=== PATIENT | male | born 2000 | race Caucasian/White ===

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

== ENCOUNTER → 2018-11-07 | Outpatient (CLI) | payer OTHER | LOC: BMCIMAGING 14:09 | PROVIDERS: ATTEND Family Medicine | DX: S69.91XA Unspecified injury of right wrist, hand and finger(s), initial encounter (principal) ==

== ENCOUNTER 2018-11-30 23:23 | Emergency (ER) | payer OTHER ==
[2018-11-30] MEDS ORDERED: ONDANSETRON 4 MG/2 ML VIAL IVP ONE (23:38)
[2018-11-30] MEDS ORDERED: NS 1,000 ML IV ONE ×2 (23:38→23:39)
--- NOTE | 2018-11-30 23:39 | EDPHY ---
H & P Stated Complaint: abd pain, vomiting since 5pm, felt unwell for a few hours Time Seen by Provider: 11/30/18 23:32 HPI/ROS: Chief Complaint: Nausea vomiting HPI: 18-year-old male began having nausea vomiting about 5:00 a.m. This evening. Had multiple episodes of vomiting. No blood or coffee-grounds in his emesis. No abdominal pain. He has not been able to keep any fluids down. No diarrhea or constipation. No dark tarry stools. He has a history of an appendectomy in the past. No fevers or chills. No known ill exposures however he is a student at the [employer]. ROS: 10 systems were reviewed and were negative except those elements noted in the HPI. PMH: Denies, has had an appendectomy Social History: No smoking, occasional alcohol, occasional marijuana Family History: non-contributory Physical Exam: Gen: Awake, Alert, No Distress HEENT: Nose: no rhinorrhea Eyes: PERRLA, EOMI Mouth: Moist mucosa Neck: Supple, no JVD Chest: nontender, lungs clear to auscultation Heart: S1, S2 normal, no murmur Abd: Soft, non-tender, no guarding Back: no CVA tenderness, no midline tenderness Ext: no edema, non-tender Skin: no rash Neuro: CN II-XII intact, Sensation grossly intact, Strength 5/5 in bilateral upper and lower extremities - Personal History Current Tetanus/Diphtheria Vaccine: Yes Current Tetanus Diphtheria and Acellular Pertussis (TDAP): Yes - Medical/Surgical History Hx Asthma: No Hx Chronic Respiratory Disease: No Hx Diabetes: No Hx Cardiac Disease: No Hx Renal Disease: No Hx Cirrhosis: No Hx Alcoholism: No Hx HIV/AIDS: No Hx Splenectomy or Spleen Trauma: No Other PMH: appendicitis - Social History Smoking Status: Never smoked Constitutional: Initial Vital Signs Temperature (C) 37.3 C 11/30/18 23:26 Heart Rate 84 11/30/18 23:26 Respiratory Rate 20 11/30/18 23:26 Blood Pressure 100/73 11/30/18 23:26 O2 Sat (%) 97 11/30/18 23:26 O2 Delivery Mode Room Air Allergies/Adverse Reactions: No Known Allergies Allergy (Unverified 11/30/18 23:26) Home Medications: Medication Instructions Recorded NK [No Known Home Meds] 11/30/18 Medical Decision Making ED Course/Re-evaluation: Patient presenting with acute nausea vomiting. Blood work is unremarkable. He has not had any abdominal pain. No diarrhea or constipation. Abdomen is soft and benign. He has been given Zofran and fluids here. Is feeling improved. No vomiting since he has been in the emergency department. He is tolerating p. O.. Will discharge with follow-up with primary care physician. Will send him home with Zofran. - Data Points Laboratory Results: Laboratory Results 11/30/18 23:45 11/30/18 23:45 11/30/18 11/30/18 23:45 23:45 WBC 7.47 10^3/uL 10^3/uL (3.80-9.50) RBC 5.16 10^6/uL 10^6/uL (4.40-6.38) Hgb 16.2 g/dL g/dL (13.7-17.5) Hct 44.5 % % (40.0-51.0) MCV 86.2 fL fL (81.5-99.8) MCH 31.4 pg pg (27.9-34.1) MCHC 36.4 g/dL g/dL (32.4-36.7) RDW 12.7 % % (11.5-15.2) Plt Count 193 10^3/uL 10^3/uL (150-400) MPV 10.7 fL fL (8.7-11.7) Neut % (Auto) 86.5 % H % (39.3-74.2) Lymph % (Auto) 5.0 % L % (15.0-45.0) [place] % (Auto) 7.4 % % (4.5-13.0) Eos % (Auto) 0.7 % % (0.6-7.6) Baso % (Auto) 0.3 % % (0.3-1.7) Nucleat RBC Rel Count 0.0 % % (0.0-0.2) Absolute Neuts (auto) 6.46 10^3/uL 10^3/uL (1.70-6.50) Absolute Lymphs (auto) 0.37 10^3/uL L 10^3/uL (1.00-3.00) Absolute Monos (auto) 0.55 10^3/uL 10^3/uL (0.30-0.80) Absolute Eos (auto) 0.05 10^3/uL 10^3/uL (0.03-0.40) Absolute Basos (auto) 0.02 10^3/uL 10^3/uL (0.02-0.10) Absolute Nucleated RBC 0.00 10^3/uL 10^3/uL (0-0.01) Immature Gran % 0.1 % % (0.0-1.1) Immature Gran # 0.01 10^3/uL 10^3/uL (0.00-0.10) RBC/WBC/PLT Morphology TNP Platelet Estimate TNP Sodium 140 mEq/L mEq/L (135-145) Potassium 4.1 mEq/L mEq/L (3.5-5.2) Chloride 108 mEq/L mEq/L (97-110) Carbon Dioxide 20 mEq/l L mEq/l (22-31) Anion Gap 12 mEq/L mEq/L (6-14) BUN 23 mg/dL mg/dL (7-23) Creatinine 1.0 mg/dL mg/dL (0.7-1.3) Estimated GFR > 60 Glucose 123 mg/dL H mg/dL (70-100) Calcium 9.5 mg/dL mg/dL (8.5-10.4) Medications Given: Discontinued Medications Sodium Chloride (Ns) 1,000 mls @ 0 mls/hr IV ONCE ONE; Wide Open PRN Reason: Protocol Stop: 11/30/18 23:39 Last Admin: 11/30/18 23:51 Dose: 1,000 mls Sodium Chloride (Ns) 1,000 mls @ 0 mls/hr IV ONCE ONE; Wide Open PRN Reason: Protocol Stop: 11/30/18 23:40 Last Admin: 11/30/18 23:52 Dose: 1,000 mls Ondansetron HCl (Zofran) 4 mg IVP EDNOW ONE Stop: 11/30/18 23:39 Last Admin: 11/30/18 23:50 Dose: 4 mg Ondansetron HCl (Zofran) 4 mg IVP EDNOW ONE Stop: 12/01/18 01:01 Last Admin: 12/01/18 01:01 Dose: 4 mg Departure - Departure Disposition: Home, Routine, Self-Care Clinical Impression: Nausea & vomiting Condition: Good Instructions: Acute Nausea and Vomiting (ED), Ondansetron (By mouth) Additional Instructions: You may take Zofran as needed for nausea vomiting. Make sure to drink plenty of fluids. Pedialyte is the best if you're not feeling well. Avoid alcohol, caffeine, and dairy products. Follow up with primary care physician 3-4 days if symptoms are not improving. Referrals: NONE *PRIMARY CARE P,. [Unknown] - As per Instructions
[2018-11-30 23:58] LABS: PLATELET COUNT 193 10^3/uL (150-400)
[2018-12-01] MEDS ORDERED: ONDANSETRON 4 MG/2 ML VIAL ONE (00:59)
[2018-12-01] MEDS ORDERED: ONDANSETRON 4 MG/2 ML VIAL IVP ONE (01:00)
[2018-12-01] MEDS ORDERED: ONDANSETRON 4MG PREPACK#2 BTL TAKEHOME ONE (01:36)
[2018-12-01 01:50] VITALS: BP 133/63
== END 2018-12-01 01:50 | disposition home or self-care (01) ==
DX: R11.2 Nausea with vomiting, unspecified (principal); E86.9 Volume depletion, unspecified
CPT/HCPCS: 96374; J2405

== ENCOUNTER → 2019-02-01 | Outpatient (CLI) | payer OTHER | LOC: BMCIMAGING 10:56 | PROVIDERS: ATTEND Family Medicine | DX: S69.92XA Unspecified injury of left wrist, hand and finger(s), initial encounter (principal) ==